=== PATIENT | female | born 1945 | race Caucasian/White ===

== ENCOUNTER 2017-09-14 09:28 | Emergency (ER) | payer MEDICARE, OTHER ==
[2017-09-14 10:16] LABS: ADD MAN DIFF? NO
[2017-09-14] MEDS: morphine 4 MG/ML VIAL IV (10:20)
[2017-09-14] MEDS: ONDANSETRON 4 MG INJ IV (10:20)
[2017-09-14 10:23] LABS: WHITE BLOOD COUNT 6.9 10^3/ul (4.8-10.8)
[2017-09-14 10:23] LABS: BASOPHILS % 0.3 % (0.0-2.0); EOSINOPHILS # 0.2 10^3/ul (0.0-0.5); EOSINOPHILS % 2.8 % (0.0-7.0); HEMATOCRIT 37.2 % (37.0-47.0); LYMPHOCYTES # 1.4 10^3/ul (0.8-2.9); LYMPHOCYTES % 20.1 % (15.0-51.0); MEAN CORPUSCULAR HEMOGLOBIN 29.1 pg (29.0-33.0); MEAN CORPUSCULAR HGB CONC 32.3 g/dl (32.0-37.0); MEAN CORPUSCULAR VOLUME 90.1 fl (82.0-101.0); MEAN PLATELET VOLUME 9.7 fl (7.4-10.4); MONOCYTE # 0.8 10^3/ul (0.3-0.9); MONOCYTES % 11.6 % (0.0-11.0); NEUTROPHIL # 4.5 10^3/ul (1.6-7.5); NEUTROPHILS % 65.1 % (39.0-77.0); PLATELET COUNT 232 10^3/UL (140-415); RED BLOOD COUNT 4.13 10^6/ul (4.20-5.40); RED CELL DISTRIBUTION WIDTH 14.8 % (11.5-14.5)
[2017-09-14 10:38] LABS: ANION GAP 17 (8-16); BLOOD UREA NITROGEN 12 mg/dl (7-20); CALCIUM 9.5 mg/dl (8.4-10.2); CARBON DIOXIDE 28 mmol/L (21-31); CHLORIDE 103 mmol/L (97-110); CREATININE 0.83 mg/dl (0.44-1.00); GLUCOSE 111 mg/dl (70-220); POTASSIUM 3.5 mmol/L (3.5-5.1); SODIUM 144 mmol/L (135-144)
[2017-09-14 10:41] LABS: INR 0.93; PROTIME 12.6 Sec (11.9-14.9)
[2017-09-14 10:42] LABS: PARTIAL THROMBOPLASTIN TIME 26.8 Sec (25.0-35.0)
[2017-09-14 10:53] LABS: TROPONIN-I < 0.012 ng/ml (0.00-0.12)
== END 2017-09-14 12:13 | disposition home or self-care (01) ==
LOC: E/R 09:28
DX: M79.604 Pain in right leg (principal); R22.41 Localized swelling, mass and lump, right lower limb; I10 Essential (primary) hypertension; R40.2142 Coma scale, eyes open, spontaneous, at arrival to emergency department; R40.2362 Coma scale, best motor response, obeys commands, at arrival to emergency department; R40.2252 Coma scale, best verbal response, oriented, at arrival to emergency department
CPT/HCPCS: 36415; 71045; 80048; 84484; 85025; 85610; 85730; 93005; 93971; 96374; 96375; 99285-25

== ENCOUNTER 2018-07-31 00:48 | Emergency (ER) | payer MEDICARE, MEDICAID, OTHER ==
[2018-07-31] MEDS: hydrALAzine 20 MG INJ IV (01:56)
[2018-07-31 02:06] LABS: ADD MAN DIFF? NO
[2018-07-31 02:08] LABS: WHITE BLOOD COUNT 6.9 10^3/ul (4.8-10.8)
[2018-07-31 02:08] LABS: BASOPHIL # 0.1 10^3/ul (0.0-0.1); BASOPHILS % 0.7 % (0.0-2.0); EOSINOPHILS # 0.2 10^3/ul (0.0-0.5); EOSINOPHILS % 2.2 % (0.0-7.0); LYMPHOCYTES # 1.8 10^3/ul (0.8-2.9); LYMPHOCYTES % 26.2 % (15.0-51.0); MEAN CORPUSCULAR HEMOGLOBIN 28.1 pg (29.0-33.0); MEAN CORPUSCULAR HGB CONC 30.8 g/dl (32.0-37.0); MEAN CORPUSCULAR VOLUME 91.3 fl (82.0-101.0); MEAN PLATELET VOLUME 9.4 fl (7.4-10.4); MONOCYTE # 1.1 10^3/ul (0.3-0.9); MONOCYTES % 15.3 % (0.0-11.0); NEUTROPHIL # 3.8 10^3/ul (1.6-7.5); NEUTROPHILS % 55.3 % (39.0-77.0); PLATELET COUNT 224 10^3/UL (140-415); RED BLOOD COUNT 4.27 10^6/ul (4.20-5.40); RED CELL DISTRIBUTION WIDTH 16.2 % (11.5-14.5)
[2018-07-31 02:26] LABS: ANION GAP 6 (5-13); BLOOD UREA NITROGEN 14 mg/dl (7-20); CALCIUM 9.7 mg/dl (8.4-10.2); CARBON DIOXIDE 31 mmol/L (21-31); CHLORIDE 103 mmol/L (97-110); CREATININE 0.65 mg/dl (0.44-1.00); Estimated GFR > 60 mL/min (>60); GLUCOSE 105 mg/dl (70-220); POTASSIUM 3.3 mmol/L (3.5-5.1); SODIUM 140 mmol/L (135-144)
[2018-07-31 02:37] LABS: TROPONIN-I < 0.012 ng/ml (0.000-0.120)
[2018-07-31] MEDS: KETOROLAC 30 MG INJ IV (03:54)
== END 2018-07-31 04:22 | disposition home or self-care (01) ==
LOC: E/R 00:48
DX: I10 Essential (primary) hypertension (principal)
CPT/HCPCS: 36415; 71045; 80048; 84484; 85025; 93005; 96374; 96375; 99285-25

== ENCOUNTER 2018-08-02 17:06 | Observation (INO) | payer MEDICARE, OTHER, MEDICAID ==
[2018-08-02] MEDS: morphine 4 MG/ML VIAL IV (18:11)
[2018-08-02] MEDS: ONDANSETRON 4 MG INJ IV (18:11)
[2018-08-02] MEDS: ASPIRIN 325 MG TAB PO (18:11)
[2018-08-02] MEDS: NICARDipine HCL 30 MG CAPSULE PO (18:11)
[2018-08-02] MEDS: NITROGLYCERIN 2% 1 GM OINT PKT TD (18:12)
[2018-08-02 18:19] LABS: ADD MAN DIFF? NO
[2018-08-02 18:21] LABS: BASOPHILS % 0.4 % (0.0-2.0); EOSINOPHILS # 0.1 10^3/ul (0.0-0.5); EOSINOPHILS % 1.4 % (0.0-7.0); HEMATOCRIT 39.4 % (37.0-47.0); HEMOGLOBIN 12.7 g/dl (12.0-16.0); LYMPHOCYTES % 28.1 % (15.0-51.0); MEAN CORPUSCULAR HEMOGLOBIN 28.2 pg (29.0-33.0); MEAN CORPUSCULAR HGB CONC 32.2 g/dl (32.0-37.0); MEAN CORPUSCULAR VOLUME 87.6 fl (82.0-101.0); MEAN PLATELET VOLUME 9.8 fl (7.4-10.4); MONOCYTES % 14.2 % (0.0-11.0); NEUTROPHIL # 3.9 10^3/ul (1.6-7.5); NEUTROPHILS % 55.6 % (39.0-77.0); PLATELET COUNT 235 10^3/UL (140-415); RED CELL DISTRIBUTION WIDTH 15.9 % (11.5-14.5)
[2018-08-02 18:51] LABS: ALANINE AMINOTRANSFERASE 33 IU/L (13-69); ALBUMIN 4.7 g/dl (3.3-4.9); ALBUMIN/GLOBULIN RATIO 1.27; ALKALINE PHOSPHATASE 61 IU/L (42-121); ANION GAP 11 (5-13); ASPARTATE AMINO TRANSFERASE 28 IU/L (15-46); BILIRUBIN,INDIRECT 0.3 mg/dl (0-1.1); BILIRUBIN,TOTAL 0.3 mg/dl (0.2-1.3); BLOOD UREA NITROGEN 14 mg/dl (7-20); CALCIUM 9.7 mg/dl (8.4-10.2); CARBON DIOXIDE 26 mmol/L (21-31); CHLORIDE 97 mmol/L (97-110); CREATININE 0.61 mg/dl (0.44-1.00); Estimated GFR > 60 mL/min (>60); GLUCOSE 106 mg/dl (70-220); POTASSIUM 3.6 mmol/L (3.5-5.1); SODIUM 134 mmol/L (135-144); TOTAL PROTEIN 8.4 g/dl (6.1-8.1)
[2018-08-02 19:03] LABS: TROPONIN-I < 0.012 ng/ml (0.000-0.120)
[2018-08-02] MEDS ORDERED: ACETAMINOPHEN 325 MG TAB PO (19:30)
[2018-08-02] MEDS ORDERED: ONDANSETRON 4 MG INJ IV (19:30)
[2018-08-02] MEDS ORDERED: IBUPROFEN 600 MG TAB PO (20:30)
[2018-08-02] MEDS ORDERED: HYDROCODONE/APAP (5/325) TAB PO (20:30)
[2018-08-02] MEDS ORDERED: NACL 0.9% 3 ML SYG IV (20:30)
[2018-08-02] MEDS ORDERED: SUMATRIPTAN 50 MG TAB PO (20:30)
[2018-08-02] MEDS: ATORVASTATIN 40 MG TAB PO (21:46)
[2018-08-02] MEDS: DOCUSATE SODIUM 100 MG CAP PO (21:46)
[2018-08-02] MEDS: AMLODIPINE 10 MG TAB PO (21:47)
[2018-08-02] MEDS: HEPARIN 5,000 UNIT/1 ML VIAL SC (21:52)
[2018-08-02] MEDS: traMADol 50 MG TAB PO (23:24)
[2018-08-02] MEDS: CILOSTAZOL 100 MG TAB PO (23:24)
[2018-08-03 00:38] LABS: TROPONIN-I < 0.012 ng/ml (0.000-0.120)
[2018-08-03 05:46] LABS: ADD MAN DIFF? NO
[2018-08-03 05:48] LABS: BASOPHILS % 0.8 % (0.0-2.0); EOSINOPHILS # 0.2 10^3/ul (0.0-0.5); EOSINOPHILS % 3.3 % (0.0-7.0); HEMATOCRIT 36.1 % (37.0-47.0); HEMOGLOBIN 11.5 g/dl (12.0-16.0); LYMPHOCYTES # 1.8 10^3/ul (0.8-2.9); LYMPHOCYTES % 35.5 % (15.0-51.0); MEAN CORPUSCULAR HEMOGLOBIN 28.3 pg (29.0-33.0); MEAN CORPUSCULAR HGB CONC 31.9 g/dl (32.0-37.0); MEAN CORPUSCULAR VOLUME 88.7 fl (82.0-101.0); MEAN PLATELET VOLUME 9.7 fl (7.4-10.4); MONOCYTE # 0.9 10^3/ul (0.3-0.9); MONOCYTES % 16.4 % (0.0-11.0); NEUTROPHIL # 2.3 10^3/ul (1.6-7.5); NEUTROPHILS % 43.8 % (39.0-77.0); PLATELET COUNT 219 10^3/UL (140-415); RED BLOOD COUNT 4.07 10^6/ul (4.20-5.40); RED CELL DISTRIBUTION WIDTH 16.1 % (11.5-14.5)
[2018-08-03 05:48] LABS: WHITE BLOOD COUNT 5.2 10^3/ul (4.8-10.8)
[2018-08-03] MEDS: traMADol 50 MG TAB PO ×4 (06:07→23:20)
[2018-08-03 06:16] LABS: ALANINE AMINOTRANSFERASE 25 IU/L (13-69); ALBUMIN 3.6 g/dl (3.3-4.9); ALBUMIN/GLOBULIN RATIO 1.33; ALKALINE PHOSPHATASE 51 IU/L (42-121); ANION GAP 7 (5-13); ASPARTATE AMINO TRANSFERASE 22 IU/L (15-46); BILIRUBIN,INDIRECT 0.2 mg/dl (0-1.1); BILIRUBIN,TOTAL 0.2 mg/dl (0.2-1.3); BLOOD UREA NITROGEN 14 mg/dl (7-20); CALCIUM 9.3 mg/dl (8.4-10.2); CARBON DIOXIDE 30 mmol/L (21-31); CHLORIDE 101 mmol/L (97-110); CREATININE 0.68 mg/dl (0.44-1.00); Estimated GFR > 60 mL/min (>60); GLUCOSE 99 mg/dl (70-220); POTASSIUM 3.5 mmol/L (3.5-5.1); SODIUM 138 mmol/L (135-144); TOTAL PROTEIN 6.3 g/dl (6.1-8.1)
[2018-08-03 06:27] LABS: TROPONIN-I < 0.012 ng/ml (0.000-0.120)
[2018-08-03 06:32] LABS: HEMOGLOBIN A1C 5.7 % (0-5.9)
[2018-08-03] MEDS: CILOSTAZOL 100 MG TAB PO ×2 (08:32→21:14)
[2018-08-03] MEDS: ISOSORBIDE MONONITRATE(SR)60 MG TAB PO (08:33)
[2018-08-03] MEDS: DOCUSATE SODIUM 100 MG CAP PO ×3 (08:33→21:15)
[2018-08-03] MEDS: HEPARIN 5,000 UNIT/1 ML VIAL SC ×2 (08:40→21:20)
[2018-08-03] MEDS: LEFLUNOMIDE 20 MG TAB PO (12:10)
[2018-08-03] MEDS: MAGNESIUM CITRATE 300 ML BTL PO (16:32)
[2018-08-03] MEDS: BISACODYL (EC) 5 MG TAB PO (16:32)
[2018-08-03] MEDS: POLYETHYLENE GLYCOL 3350 119 GM POWDER PO (18:03)
[2018-08-03] MEDS: HYDROCODONE/APAP (5/325) TAB PO (21:14)
[2018-08-03] MEDS: AMLODIPINE 10 MG TAB PO (21:14)
[2018-08-03] MEDS: ATORVASTATIN 40 MG TAB PO (21:14)
[2018-08-04] MEDS: POLYETHYLENE GLYCOL 3350 119 GM POWDER PO (06:14)
[2018-08-04] MEDS: traMADol 50 MG TAB PO ×4 (06:14→23:40)
[2018-08-04 06:56] LABS: ADD MAN DIFF? NO
[2018-08-04 07:01] LABS: BASOPHILS % 0.6 % (0.0-2.0); EOSINOPHILS # 0.2 10^3/ul (0.0-0.5); EOSINOPHILS % 3.2 % (0.0-7.0); HEMATOCRIT 37.1 % (37.0-47.0); HEMOGLOBIN 11.8 g/dl (12.0-16.0); LYMPHOCYTES # 1.9 10^3/ul (0.8-2.9); MEAN CORPUSCULAR HEMOGLOBIN 28.3 pg (29.0-33.0); MEAN CORPUSCULAR HGB CONC 31.8 g/dl (32.0-37.0); MEAN PLATELET VOLUME 9.6 fl (7.4-10.4); MONOCYTE # 0.9 10^3/ul (0.3-0.9); NEUTROPHIL # 2.2 10^3/ul (1.6-7.5); PLATELET COUNT 221 10^3/UL (140-415); RED BLOOD COUNT 4.17 10^6/ul (4.20-5.40)
[2018-08-04 07:01] LABS: WHITE BLOOD COUNT 5.2 10^3/ul (4.8-10.8)
[2018-08-04 07:39] LABS: ANION GAP 5 (5-13); BLOOD UREA NITROGEN 18 mg/dl (7-20); CALCIUM 9.2 mg/dl (8.4-10.2); CARBON DIOXIDE 29 mmol/L (21-31); CHLORIDE 103 mmol/L (97-110); CREATININE 0.76 mg/dl (0.44-1.00); Estimated GFR > 60 mL/min (>60); GLUCOSE 87 mg/dl (70-220); POTASSIUM 3.4 mmol/L (3.5-5.1); SODIUM 137 mmol/L (135-144)
[2018-08-04 07:45] LABS: CHOL/HDL RATIO 3.8 RATIO; CHOLESTEROL 153 mg/dl (100-200); HDL CHOLESTEROL 40 mg/dl (33-92); LDL CHOLESTEROL,CALCULATED 87 mg/dl; MAGNESIUM 2.3 mg/dl (1.7-2.5); TRIGLYCERIDES 130 mg/dl (0-149)
[2018-08-04 07:45] LABS: PHOSPHORUS 4.1 mg/dl (2.5-4.9)
[2018-08-04 08:05] LABS: ERYTHROCYTE SEDIMENTATION RATE 15 mm/Hr (0-30)
[2018-08-04] MEDS: LEFLUNOMIDE 20 MG TAB PO (08:39)
[2018-08-04] MEDS: CILOSTAZOL 100 MG TAB PO ×2 (08:39→20:05)
[2018-08-04] MEDS: ISOSORBIDE MONONITRATE(SR)60 MG TAB PO (08:39)
[2018-08-04] MEDS: DOCUSATE SODIUM 100 MG CAP PO ×3 (08:39→20:04)
[2018-08-04] MEDS: BISACODYL (EC) 5 MG TAB PO (08:39)
[2018-08-04] MEDS: HEPARIN 5,000 UNIT/1 ML VIAL SC ×2 (09:15→20:09)
[2018-08-04] MEDS ORDERED: PROPOFOL 60 ML (15:53)
[2018-08-04] MEDS ORDERED: LIDOCAINE 2% (SDV) 5 ML INJ (15:53)
[2018-08-04] MEDS ORDERED: ONDANSETRON 4 MG INJ IV (17:00)
[2018-08-04] MEDS ORDERED: DIPHENHYDRAMINE 50 MG INJ IV (17:00)
[2018-08-04] MEDS ORDERED: EPHEDrine SULFATE 50 MG/5 ML SYG IV (17:00)
[2018-08-04] MEDS ORDERED: FENTAnyl 50 MCG/ML VIAL IV (17:00)
[2018-08-04] MEDS: ATORVASTATIN 40 MG TAB PO (20:04)
[2018-08-04] MEDS: AMLODIPINE 10 MG TAB PO (20:05)
[2018-08-05] MEDS: traMADol 50 MG TAB PO ×2 (06:00→12:00)
[2018-08-05] MEDS: LEFLUNOMIDE 20 MG TAB PO (09:00)
[2018-08-05] MEDS: DOCUSATE SODIUM 100 MG CAP PO ×2 (09:00→12:04)
[2018-08-05] MEDS: CILOSTAZOL 100 MG TAB PO (09:00)
[2018-08-05] MEDS: ISOSORBIDE MONONITRATE(SR)60 MG TAB PO (09:00)
[2018-08-05] MEDS: HEPARIN 5,000 UNIT/1 ML VIAL SC (09:00)
[2018-08-05] MEDS: BARIUM SULF 2% 450 ML BTL (BERRY SMOOTHIE) PO (12:52)
[2018-08-05] MEDS: SOD CHLORIDE 0.9% 100 ML (14:23)
[2018-08-05] MEDS: IOHEXOL 300MG/ML 150 ML BTL (14:23)
== END 2018-08-05 15:28 | disposition home or self-care (01) ==
LOC: E/R 17:06 → TEL 19:27
DX: K65.4 Sclerosing mesenteritis (principal); D12.5 Benign neoplasm of sigmoid colon; R07.9 Chest pain, unspecified; K64.8 Other hemorrhoids; I16.0 Hypertensive urgency; I10 Essential (primary) hypertension; E78.5 Hyperlipidemia, unspecified; M06.9 Rheumatoid arthritis, unspecified
CPT/HCPCS: 36415; 71045; 74176; 74177; 80048; 80053; 80061; 83036; 83735; 84100; 84484; 85025; 85651; 86140; 88305; 93005; 93306; 96374; 96375; 99285-25; G0378